=== PATIENT | male | born 1965 | race Caucasian/White ===

== ENCOUNTER → 2022-02-20 15:00 | Outpatient (CLI) | payer BC, SELFPAY ==
[2022-02-20 19:29] LABS: Basophils # 0.1 K/mm3 (0-0.2); Basophils % 1.1 % (0.1-2.0); Eosinophils # 0.2 K/mm3 (0.0-0.4); Eosinophils % 2.3 % (0.1-12.0); Hematocrit 45.6 % (42.0-52.0); Hemoglobin 15.3 g/dL (14.1-18.0); Lymphocytes # 2.5 K/mm3 (0.7-4.5); Lymphocytes % 38.5 % (10-50); Mean Corpuscular HGB Conc 33.6 g/dL (31.8-35.4); Mean Corpuscular Volume 95.2 fl (80-94); Monocytes # 0.5 K/mm3 (0.1-1.0); Monocytes % 7.8 % (1.7-9.3); Neutrophils # 3.3 K/mm3 (1.8-7.8); Neutrophils % 50.3 % (37.0-80.0); Platelet Count 271 K/mm3 (142-424); Red Blood Count 4.79 M/mm3 (4.60-6.20); White Blood Count 6.5 K/mm3 (4.8-10.8)
[2022-02-20 19:36] LABS: Alanine Aminotransferase 19 U/L (12-78); Albumin/Globulin Ratio 1.3 (1.1-1.8); Alkaline Phosphatase 114 U/L (38-126); Anion Gap 11.2 mEq/L (5-15); Aspartate Amino Transferase 30 U/L (17-59); Bilirubin,Total 0.5 mg/dl (0.2-1.3); Blood Urea Nitrogen 13 mg/dl (9-20); Calcium 8.4 mg/dl (8.4-10.2); Carbon Dioxide 25 mmol/L (22.0-30.0); Chloride 105 mmol/L (98-107); Chol/HDL Ratio 4.3 (1-3.5); Cholesterol 164 mg/dl (140-200); Estimated Glomerular Filt Rate 100 ml/min (>60); GFR (African American) 121 ML/MIN (>60); Globulin 3.1 g/dL (1.3-3.2); Glucose 87 mg/dl (74-100); HDL Cholesterol 38 mg/dl (40-60); Potassium 4.2 mmoL/L (3.5-5.1); Sodium 137 mmol/L (136-145); Total Protein,Serum 7.1 g/dl (6.3-8.2); Triglycerides 106 mg/dl (30-150); VLDL Cholesterol 21 mg/dL (0-40)
[2022-02-20 19:47] LABS: Direct LDL Cholesterol 95.69 mg/dL (100-129)
[2022-02-20 20:07] LABS: Prostate Specific Ag Screen 0.4 ng/ml (0.0-4.0)
== END ==
PROVIDERS: Visit Provider Family Medicine
DX: Z00.00 Encounter for general adult medical examination without abnormal findings (principal); Z12.5 Encounter for screening for malignant neoplasm of prostate
CPT/HCPCS: 80053; 80061; 85025; G0103

== ENCOUNTER → 2023-06-17 08:46 | Outpatient (CLI) | payer BC, SELFPAY ==
[2023-06-17 18:49] LABS: Basophils % 0.6 % (0.1-2.0); Eosinophils # 0.2 K/mm3 (0.0-0.4); Eosinophils % 2.6 % (0.1-12.0); Hematocrit 47.9 % (42.0-52.0); Hemoglobin 14.8 g/dL (14.1-18.0); Lymphocytes # 1.9 K/mm3 (0.7-4.5); Lymphocytes % 28.9 % (10-50); Mean Corpuscular HGB Conc 30.9 g/dL (31.8-35.4); Mean Corpuscular Hemoglobin 29.3 pg (27.0-31.2); Mean Corpuscular Volume 94.7 fl (80-94); Mean Platelet Volume 8.9 fl (7.4-10.4); Monocytes # 0.5 K/mm3 (0.1-1.0); Monocytes % 7.7 % (1.7-9.3); Neutrophils # 3.9 K/mm3 (1.8-7.8); Neutrophils % 60.2 % (37.0-80.0); Platelet Count 236 K/mm3 (142-424); Red Blood Count 5.06 M/mm3 (4.60-6.20); Red Cell Distribution Width 12.7 % (11.5-17.5); White Blood Count 6.5 K/mm3 (4.8-10.8)
[2023-06-17 19:14] LABS: Alanine Aminotransferase 17 U/L (12-78); Albumin Level 4.1 g/dl (3.5-5.0); Albumin/Globulin Ratio 1.1 (1.1-1.8); Alkaline Phosphatase 112 U/L (38-126); Anion Gap 10.9 mEq/L (5-15); Aspartate Amino Transferase 29 U/L (17-59); Bilirubin,Total 0.7 mg/dl (0.2-1.3); Blood Urea Nitrogen 10 mg/dl (9-20); Calcium 9.1 mg/dl (8.4-10.2); Carbon Dioxide 30 mmol/L (22.0-30.0); Chloride 105 mmol/L (98-107); Chol/HDL Ratio 3.7 (1-3.5); Cholesterol 196 mg/dl (140-200); Estimated Glomerular Filt Rate 87 ml/min (>60); GFR (African American) 105 ML/MIN (>60); Globulin 3.6 g/dL (1.3-3.2); Glucose 89 mg/dl (74-100); HDL Cholesterol 53 mg/dl (40-60); Potassium 4.9 mmoL/L (3.5-5.1); Sodium 141 mmol/L (136-145); Total Protein,Serum 7.7 g/dl (6.3-8.2); Triglycerides 113 mg/dl (30-150); VLDL Cholesterol 23 mg/dL (0-40)
[2023-06-17 19:25] LABS: Direct LDL Cholesterol 106.11 mg/dL (100-129)
[2023-06-17 19:47] LABS: Prostate Specific Ag Screen 0.4 ng/ml (0.0-4.0)
== END ==
PROVIDERS: PCP Family Medicine; Visit Provider Family Medicine
DX: J43.9 Emphysema, unspecified (principal); Z79.899 Other long term (current) drug therapy; Z12.5 Encounter for screening for malignant neoplasm of prostate
CPT/HCPCS: 80053; 80061; 85025; G0103

== ENCOUNTER 2024-06-26 10:29 | Outpatient (CLI) | payer OTHER, SELFPAY ==
[2024-06-26 18:37] LABS: Basophils # 0.1 K/mm3 (0-0.2); Basophils % 0.8 % (0.1-2.0); Eosinophils # 0.2 K/mm3 (0.0-0.4); Eosinophils % 2.8 % (0.1-12.0); Hematocrit 44.7 % (42.0-52.0); Lymphocytes # 2.3 K/mm3 (0.7-4.5); Mean Corpuscular HGB Conc 31.3 g/dL (31.8-35.4); Mean Corpuscular Hemoglobin 30.8 pg (27.0-31.2); Mean Corpuscular Volume 98.6 fl (80-94); Mean Platelet Volume 8.5 fl (7.4-10.4); Monocytes # 0.4 K/mm3 (0.1-1.0); Monocytes % 6.1 % (1.7-9.3); Neutrophils # 3.6 K/mm3 (1.8-7.8); Neutrophils % 55.4 % (37.0-80.0); Platelet Count 243 K/mm3 (142-424); Red Blood Count 4.53 M/mm3 (4.60-6.20); Red Cell Distribution Width 14.1 % (11.5-17.5); White Blood Count 6.5 K/mm3 (4.8-10.8)
[2024-06-26 20:46] LABS: Alanine Aminotransferase 24 U/L (12-78); Albumin Level 3.6 g/dl (3.5-5.0); Albumin/Globulin Ratio 1.1 (1.1-1.8); Alkaline Phosphatase 91 U/L (38-126); Anion Gap 9.2 mEq/L (5-15); Aspartate Amino Transferase 33 U/L (17-59); Bilirubin,Total 0.7 mg/dl (0.2-1.3); Blood Urea Nitrogen 9 mg/dl (9-20); Calcium 8.8 mg/dl (8.4-10.2); Carbon Dioxide 27 mmol/L (22.0-30.0); Chloride 107 mmol/L (98-107); Cholesterol 149 mg/dl (140-200); Estimated Glomerular Filt Rate 99 ml/min (>60); GFR (African American) 120 ML/MIN (>60); Globulin 3.3 g/dL (1.3-3.2); Glucose 85 mg/dl (74-100); HDL Cholesterol 49 mg/dl (40-60); Potassium 4.2 mmoL/L (3.5-5.1); Sodium 139 mmol/L (136-145); Total Protein,Serum 6.9 g/dl (6.3-8.2); Triglycerides 79 mg/dl (30-150); VLDL Cholesterol 16 mg/dL (0-40)
[2024-06-26 20:57] LABS: Direct LDL Cholesterol 74.84 mg/dL (100-129)
[2024-06-26 21:16] LABS: Prostate Specific Ag Screen 0.4 ng/ml (0.0-4.0)
== END 2024-06-26 23:59 | disposition home or self-care (01) ==
LOC: LAB.DROPOF 06-27 09:08
PROVIDERS: PCP Family Medicine; Visit Provider Family Medicine
DX: Z12.5 Encounter for screening for malignant neoplasm of prostate (principal); I42.9 Cardiomyopathy, unspecified
CPT/HCPCS: 80053; 80061; 85025; G0103